=== PATIENT | male | born 1990 | race African-American/Black ===

== ENCOUNTER 2020-11-10 06:15 | Day surgery (SDC) | payer OTHER, SELFPAY ==
[~2020-11-10] VITALS: Ht 175.3 cm; Wt 79.4 kg
[2020-11-10] MEDS ORDERED: LIDOCAINE/EPI 1% 1:100000 20 ML VIAL INJ ONE (07:30)
[2020-11-10] MEDS ORDERED: ONDANSETRON HCL 4 MG/2 ML VIAL IVP ONE (07:30)
[2020-11-10] MEDS ORDERED: NS 1000 ML IV.SOLN IV ONE (07:30)
[2020-11-10] MEDS ORDERED: MIDAZOLAM HCL 5 MG/5 ML VIAL IVP ONE (07:30)
[2020-11-10] MEDS ORDERED: ISOFLURANE 15 MIN GAS INH ONE (07:30)
[2020-11-10] MEDS ORDERED: EPINEPHrine 1 MG/ML AMP IM ONE (07:30)
[2020-11-10] MEDS ORDERED: ROCURONIUM BROMIDE 10 MG/ML (ZEMURON) IV ONE (07:30)
[2020-11-10] MEDS ORDERED: BACITRACIN ZINC 15 GM TOPICAL OINTMENT TP ONE (07:30)
[2020-11-10] MEDS ORDERED: SUGAMMADEX SODIUM 200 MG/2 ML VIAL IV ONE (07:30)
[2020-11-10] MEDS ORDERED: DEXAMETHASONE SOD PHOSPHATE 4 MG/ML VIAL IVP ONE (07:30)
[2020-11-10] MEDS ORDERED: PROPOFOL 200MG/ 20ML VIAL (DIPRIVAN) IV ONE (07:30)
[2020-11-10] MEDS ORDERED: LR 1,000 ML IV.SOLN IV ONE (07:30)
[2020-11-10] MEDS ORDERED: LIDOCAINE 2%, 20 ML MDV INJ ONE (07:30)
[2020-11-10] MEDS ORDERED: fentaNYL CITRATE/PF 100 MCG/2 ML AMP IVP ONE (07:30)
[2020-11-10] MEDS ORDERED: MUPIROCIN 2% TOPICAL OINTMENT 22 GM TP ONE (07:30)
[2020-11-10] MEDS ORDERED: NS IRRIG SOLN 1000 ML IR ONE (07:30)
[2020-11-10] MEDS ORDERED: MEPERIDINE HCL/PF 25 MG/ML DISP.SYRIN IVP PRN (08:30)
[2020-11-10] MEDS ORDERED: hydrALAZINE HCL 20 MG/ML VIAL IVP PRN (08:30)
[2020-11-10] MEDS ORDERED: LABETALOL 100 MG/ 20ML VIAL IVP PRN (08:30)
[2020-11-10] MEDS ORDERED: MIDAZOLAM HCL 2 MG/2 ML VIAL (VERSED) IVP PRN (08:30)
[2020-11-10] MEDS ORDERED: ONDANSETRON HCL 4 MG/2 ML VIAL IVP PRN (08:30)
[2020-11-10] MEDS ORDERED: HYDROmorphone 1 INJ. 1 MG/ML CARTRIDGE IVP PRN ×2 (08:30)
[2020-11-10] MEDS ORDERED: LR 1,000 ML IV SCH (08:30)
[2020-11-10] MEDS ORDERED: ACETAMINOPHEN I.V. 1000 MG 100 ML IV ONE (09:07)
[2020-11-10 16:25] VITALS: BP_SYST 122
== END 2020-11-10 12:45 | disposition home or self-care (01) ==
LOC: SMU 06:15 → SDS 06:15 → SMU 10:44 → SDS 12:45
PROVIDERS: ATTEND Otolaryngology
DX: J34.89 Other specified disorders of nose and nasal sinuses (principal); D38.5 Neoplasm of uncertain behavior of other respiratory organs; J34.2 Deviated nasal septum; F43.10 Post-traumatic stress disorder, unspecified; F32.9 Major depressive disorder, single episode, unspecified; F17.210 Nicotine dependence, cigarettes, uncomplicated; Z20.828 Contact with and (suspected) exposure to other viral communicable diseases; Z79.899 Other long term (current) drug therapy
CPT/HCPCS: 30140; 30520; 31256; 31298; 88305; 88311; C1726; C9399; J0131; J0171; J1100; J2001; J2250; J2405; J2704; J3010; J7030; J7120; U0003